=== PATIENT | female | born 1980 | race Two or more races ===

== ENCOUNTER 2023-07-08 22:40 | Emergency (ER) | payer OTHER ==
[~2023-07-08] VITALS: Ht 157.5 cm; Wt 47.6 kg
[2023-07-09 00:40] VITALS: BP 118/77; TEMP 98.4; O2SAT 98
== END 2023-07-09 00:40 ==
LOC: ER 22:43
DX: Z20.822 Contact with and (suspected) exposure to COVID-19 (principal); Z88.0 Allergy status to penicillin; Z88.2 Allergy status to sulfonamides
CPT/HCPCS: 99283; 87426; C9803